=== PATIENT | male | born 1965 | race Caucasian/White ===

== ENCOUNTER → 2018-12-23 | Outpatient (CLI) | payer BC ==
--- NOTE | 2018-12-23 14:45 | XR ---
Left leg and left knee HISTORY: Pain 3 views of the left knee, 2 views of the left leg are submitted. Marginal spurring is present patellofemoral joint. Suspect vascular calcifications are present. There may be minimal joint effusion. Bone mineralization, joint spaces and alignment are maintained. No fr acture or dislocation. IMPRESSION: Suspect mild osteoarthritis. Knee MRI may be of benefit.
== END | disposition home or self-care (01) ==
LOC: RADXRMAIN 13:38
PROVIDERS: ATTEND Family Medicine
DX: M25.562 Pain in left knee (principal); M79.662 Pain in left lower leg
CPT/HCPCS: 36415; 85379

== ENCOUNTER → 2019-01-11 | Outpatient (CLI) | payer BC ==
--- NOTE | 2019-01-11 20:38 | MR ---
EXAMINATION TYPE: MR knee LT wo con DATE OF EXAM: 01/11/2019 COMPARISON: Left knee x-ray December 23, 2018. HISTORY: Lt knee pain x 3 yrs TECHNIQUE: Multiplanar, multisequence images of the knee is performed without IV contrast. FINDINGS: MEDIAL MENISCUS: Anterior and posterior horns are intact without tear. LATERAL MENISCUS: Anterior and posterior horns are intact without tear. CRUCIATE LIGAMENTS: The anterior and posterior cruciate ligaments are intact and unremarkable. COLLATERAL LIGAMENTS: The medial collateral ligament and lateral collateral ligament complex are inta ct and unremarkable. EXTENSOR MECHANISM: Visualized quadriceps and patellar tendons are intact. EFFUSION: No significant suprapatellar joint effusion. POPLITEAL CYST: Small septated popliteal/marquez cyst measuring 3.2 cm long axis sagittal image 24. TRICOMPARTMENT SPACES: Mild tricompartment joint space loss. No significant spurring. CARTILAGE: Compartment articular cartilage is maintained. BONE MARROW SIGNAL: No focal abnormal marrow signal is appreciated. OTHER: No additional significant abnormality is appreciated. IMPRESSION: No meniscal or ligamentous tear is seen. Small popliteal cyst. Mild tricompartment degene rative changes.
== END | disposition home or self-care (01) ==
LOC: RADMRIMAIN 18:30
PROVIDERS: ATTEND Family Medicine
DX: M17.12 Unilateral primary osteoarthritis, left knee (principal); M71.22 Synovial cyst of popliteal space [Baker], left knee

== ENCOUNTER 2019-07-31 02:14 | Emergency (ER) | payer BC ==
[2019-07-31 02:21] VITALS: TEMP 98.2
[2019-07-31] MEDS ORDERED: SODIUM CHLORIDE 0.9% 1,000 ML IV STA (02:34)
[2019-07-31] MEDS ORDERED: MECLIZINE 12.5 MG TAB PO STA (02:34)
[2019-07-31] MEDS ORDERED: LORazepam 2 MG/ML INJ IV STA (02:34)
--- NOTE | 2019-07-31 02:39 | ED ---
General Adult HPI - General Chief complaint: Dizziness Stated complaint: Dizziness Time Seen by Provider: 07/31/19 02:24 Source: patient, family, RN notes reviewed, old records reviewed Mode of arrival: ambulatory Limitations: no limitations - History of Present Illness Initial comments: 53-year-old male presenting for evaluation of lightheadedness, dizziness. Symptoms have been present throughout the day today. Patient denies focal numbness or weakness. Denies central chest pain. Denies cough fever or URI symptoms. He's had some nausea without vomiting. He has history of hypercholesterolemia and is a smoker. Otherwise he is healthy with no known coronary artery disease, no history of TIA or CVA. Patient had found out that his dog 11 years was ill and the dog one hour prior to arrival to the emergency department. Additionally the patient is on Lexapro although he has been weaning his dose over the past several days. Currently taking 5 mg of Lexapro. He states he's had similar symptoms although not as severe in the past when he had missed doses of Lexapro. - Related Data Allergies Allergy/AdvReac Type Severity Reaction Status Date / Time No Known Allergies Allergy Verified 07/31/19 02:20 Review of Systems ROS Statement: Those systems with pertinent positive or pertinent negative responses have been documented in the HPI. ROS Other: All systems not noted in ROS Statement are negative. Past Medical History Past Medical History: Hypertension History of Any Multi-Drug Resistant Organisms: None Reported Past Surgical History: Orthopedic Surgery Past Psychological History: Anxiety Smoking Status: Former smoker Past Alcohol Use History: None Reported Past Drug Use History: None Reported General Exam Limitations: no limitations General appearance: alert, in no apparent distress Head exam: Present: atraumatic, normocephalic Eye exam: Present: normal appearance, PERRL, EOMI. Absent: scleral icterus, nystagmus ENT exam: Present: normal exam Neck exam: Present: normal inspection. Absent: tenderness, meningismus Respiratory exam: Present: normal lung sounds bilaterally. Absent: respiratory distress, wheezes Cardiovascular Exam: Present: regular rate, normal rhythm GI/Abdominal exam: Present: soft. Absent: distended, tenderness, guarding, rebound Extremities exam: Present: normal inspection, normal capillary refill. Absent: pedal edema Neurological exam: Present: alert, oriented X3, CN II-XII intact, other (Bilateral [id number] normal, bilateral [id number] normal, no ataxia). Absent: motor sensory deficit Psychiatric exam: Present: agitated, anxious Skin exam: Present: warm, dry, intact. Absent: cyanosis, diaphoretic Course Vital Signs 07/31/19 02:15 Temperature 98.2 F Pulse Rate 60 Respiratory 20 Rate Blood Pressure 141/69 O2 Sat by Pulse 100 Oximetry EKG Findings - EKG Comments: EKG Findings:: EKG: Normal sinus rhythm, low voltage, rate of 60, TX interval 158, QRS duration 86, QTC 410, no ST segment elevation. Medical Decision Making - Medical Decision Making Patient with lightheadedness, dizziness, anxiety. Patient has a nonfocal neurologic exam, no ataxia. Head CT negative for acute intracranial abnormality. Normal CBC, normal CMP, negative troponin, nonischemic EKG normal sinus rhythm. Patient feeling better after medical treatment including Ativan, meclizine, IV fluids. He does believe this was related to anxiety from his dog passing away. He has been reassured and will follow-up with his primary care physician. - Lab Data Result diagrams: 07/31/19 02:33 07/31/19 02:33 Lab Results 07/31/19 07/31/19 07/31/19 Range/Units 02:33 02:33 02:33 WBC 11.0 H (3.8-10.6) k/uL RBC 5.03 (4.30-5.90) m/uL Hgb 15.1 (13.0-17.5) gm/dL Hct 46.8 (39.0-53.0) % MCV 93.1 (80.0-100.0) fL MCH 30.0 (25.0-35.0) pg MCHC 32.3 (31.0-37.0) g/dL RDW 12.6 (11.5-15.5) % Plt Count 193 (150-450) k/uL Neutrophils % 58 % Lymphocytes % 32 % Monocytes % 5 % Eosinophils % 2 % Basophils % 0 % Neutrophils # 6.3 (1.3-7.7) k/uL Lymphocytes # 3.6 (1.0-4.8) k/uL Monocytes # 0.5 (0-1.0) k/uL Eosinophils # 0.2 (0-0.7) k/uL Basophils # 0.0 (0-0.2) k/uL Sodium 138 (137-145) mmol/L Potassium 4.2 (3.5-5.1) mmol/L Chloride 104 (98-107) mmol/L Carbon Dioxide 23 (22-30) mmol/L Anion Gap 11 mmol/L BUN 11 (9-20) mg/dL Creatinine 0.64 L (0.66-1.25) mg/dL Est GFR (CKD-EPI)AfAm >90 (>60 ml/min/1.73 sqM) Est GFR (CKD-EPI)NonAf >90 (>60 ml/min/1.73 sqM) Glucose 128 H (74-99) mg/dL Calcium 9.7 (8.4-10.2) mg/dL Total Bilirubin 0.5 (0.2-1.3) mg/dL AST 28 (17-59) U/L ALT 22 (4-49) U/L Alkaline Phosphatase 112 (38-126) U/L Troponin I <0.012 (0.000-0.034) ng/mL Total Protein 7.8 (6.3-8.2) g/dL Albumin 4.6 (3.5-5.0) g/dL Disposition Clinical Impression: Anxiety, Grief reaction Disposition: HOME SELF-CARE Condition: Fair Instructions (If sedation given, give patient instructions): Dizziness (ED) Is patient prescribed a controlled substance at d/c from ED?: No Referrals: Genaro Aguilar DO [Primary Care Provider] - 1-2 days Time of Disposition: 03:26
[2019-07-31 02:41] LABS: Basophils % (A) 0 %; Eosinophils # (A) 0.2 k/uL (0-0.7); Eosinophils % (A) 2 %; HCT 46.8 % (39.0-53.0); HGB 15.1 gm/dL (13.0-17.5); Lymphocytes # (A) 3.6 k/uL (1.0-4.8); Lymphocytes % (A) 32 %; MCHC 32.3 g/dL (31.0-37.0); MCV 93.1 fL (80.0-100.0); Mean Platelet Volume 8.1; Monocytes # (A) 0.5 k/uL (0-1.0); Monocytes % (A) 5 %; Neutrophils # (A) 6.3 k/uL (1.3-7.7); Neutrophils % (A) 58 %; Platelet Count 193 k/uL (150-450); RBC 5.03 m/uL (4.30-5.90); RDW 12.6 % (11.5-15.5)
[2019-07-31 02:59] LABS: ALT 22 U/L (4-49); AST 28 U/L (17-59); African American GFR (CKD) >90 (>60 ml/min/1.73 sqM); Albumin 4.6 g/dL (3.5-5.0); Alkaline Phosphatase 112 U/L (38-126); Anion Gap 11 mmol/L; Blood Urea Nitrogen 11 mg/dL (9-20); Calcium 9.7 mg/dL (8.4-10.2); Carbon Dioxide 23 mmol/L (22-30); Chloride 104 mmol/L (98-107); Glucose 128 mg/dL (74-99); Non-African American GFR(CKD) >90 (>60 ml/min/1.73 sqM); Potassium 4.2 mmol/L (3.5-5.1); Sodium 138 mmol/L (137-145); Total Bilirubin 0.5 mg/dL (0.2-1.3); Total Protein 7.8 g/dL (6.3-8.2)
--- NOTE | 2019-07-31 03:00 | CT ---
EXAMINATION TYPE: CT brain wo con DATE OF EXAM: 07/31/2019 COMPARISON: 01/26/2014 HISTORY: Dizziness CT DLP: 1113.40 mGycm Automated exposure control for dose reduction was used. Ventricles have normal size. There is no mass effect nor midline shift. There is no sign of intracran ial hemorrhage. The calvarium is intact. There is mild mucosal thickening in the ethmoid and maxillar y sinuses. Skull base is intact. There is no evidence of cerebral edema. IMPRESSION: Negative CT scan of the brain. Mild sinusitis. Unchanged.
[2019-07-31 03:46] VITALS: BP 106/74; PULSE 63; RESP 18
== END 2019-07-31 03:43 | disposition home or self-care (01) ==
LOC: EC 02:14
DX: F43.22 Adjustment disorder with anxiety (principal); Z87.891 Personal history of nicotine dependence
CPT/HCPCS: 36415; 93005; 80053; 84484; 85025; 70450; 99285; 96374; 96361; J2060

== ENCOUNTER → 2020-10-17 | Outpatient (CLI) | payer BC ==
--- NOTE | 2020-10-17 17:28 | XR ---
EXAMINATION TYPE: XR chest 2V DATE OF EXAM: 10/17/2020 COMPARISON: Chest x-ray dated 03/20/2012 HISTORY: Tobacco use, pain right chest TECHNIQUE: Frontal and lateral views of the chest are obtained. FINDINGS: There is no focal air space opacity, pleural effusion, or pneumothorax seen. The cardiac silhouette size is within normal limits. The osseous structures are intact, there is a pectus defor mity. IMPRESSION: No acute cardiopulmonary process.
== END | disposition home or self-care (01) ==
LOC: RADXRMAIN 12:08
PROVIDERS: ATTEND Family Medicine
DX: R07.9 Chest pain, unspecified (principal); Z72.0 Tobacco use
CPT/HCPCS: 71046

== ENCOUNTER → 2020-10-27 | Outpatient (CLI) | payer BC ==
--- NOTE | 2020-10-27 10:21 | USB ---
Reason for exam: clinical finding. History: Family history of breast cancer in paternal grandmother. Indicated problem(s): pain in both breasts. Physical Findings: Nurse Summary: Patient complains of bilateral breast pain x 1 hour with bilateral sensitive nipples, states sensitivity gone since stopped using shower loofah. Pain was 6 weeks post vaccine. No palpable abnormalies noted during exam today. No pain noted today (nurse rafael). US Breast Limited BILAT Right limited breast ultrasound including focal area of concern, retroareolar and axilla demonstrates no cystic or solid lesion seen. Right side symptomatic, scanned 5-7 o'clock, posterior nipple and axilla. Left limited breast ultrasound including focal area of concern, retroareolar and axilla demonstrates no cystic or solid lesion seen. No subareolar tissue. No axillary CAD. Left side scanned for comparision. Patient declines mammogram. These results were verbally communicated with the patient and result sheet given to the patient on 10/27/20. ASSESSMENT: Negative, BI-RAD 1 RECOMMENDATION: Clinical management of both breasts. Patient declines mammogram. Manage on a clinical basis with regard to breast pain and nipple sensitivity. If any palpable area arrives, ultrasound and mammogram will be recommended.
== END | disposition home or self-care (01) ==
LOC: RADMAMWWP 07:35
PROVIDERS: ATTEND Family Medicine
DX: N64.4 Mastodynia (principal)

== ENCOUNTER → 2022-09-05 | Outpatient (CLI) | payer BC ==
--- NOTE | 2022-09-25 14:42 | P.CEMON ---
[14] DAY EVENT MONITOR REPORT: INDICATION: Cardiac arrhythmia. START DATE: 09/05/2022 END DATE: 09/12/2022 Patient wore the monitor for 6.7 days which is 83 % of total time. Maximum Heart Rate: 105 BPM Minimum Heart Rate: 50 BPM FINDINGS: Overall [good] quality study. Patient's baseline rhythm was [normal sinus rhythm]. Baseline heart rate was 66 beats per minute. There were no observed atrial fibrillation, atrial flutter, supraventricular tachycardia or sustained ventricular rhythm. There were no observed sinus pauses which were more than 2 second long. Patient triggered events with no specific symptoms. On single lead EKG, it corresponded to normal sinus rhythm. There were a few auto capture rhythm strips corresponding to sinus bradycardia normal sinus rhythm. Please correlate clinically. Jamie Falcon MD Cardiovascular Disease
--- NOTE | 2022-09-26 11:28 | EM ---
14 DAY EVENT MONITOR REPORT: INDICATION: Cardiac arrhythmia. START DATE: 09/05/2022 END DATE: 09/12/2022 Patient wore the monitor for 6.7 days which is 83 % of total time. Maximum Heart Rate: 105 BPM Minimum Heart Rate: 50 BPM FINDINGS: Overall good quality study. Patient's baseline rhythm was [normal sinus rhythm]. Baseline heart rate was 66 beats per minute. There were no observed atrial fibrillation, atrial flutter, supraventricular tachycardia or sustained ventricular rhythm. There were no observed sinus pauses which were more than 2 second long. Patient triggered events with no specific symptoms. On single lead EKG, it corresponded to normal sinus rhythm. There were a few auto capture rhythm strips corresponding to sinus bradycardia normal sinus rhythm. Please correlate clinically. MTDD
== END | disposition home or self-care (01) ==
LOC: RADECHMAIN 11:49
PROVIDERS: ATTEND Family Medicine
DX: I49.9 Cardiac arrhythmia, unspecified (principal)
CPT/HCPCS: 93270

== ENCOUNTER → 2022-09-09 | Outpatient (CLI) | payer BC ==
--- NOTE | 2022-09-09 10:39 | XR ---
EXAMINATION TYPE: XR chest 2V DATE OF EXAM: 09/09/2022 COMPARISON: 10/17/2020 HISTORY: Shortness of breath TECHNIQUE: Frontal and lateral views of the chest are obtained. FINDINGS: Scattered senescent parenchymal changes noted. Hyperinflation compatible with COPD. No evidence for infiltrate. No evidence for atelectasis. Heart size is stable. Mediastinal structures are stable and grossly unremarkable. No evidence for hilar prominence. Degenerative changes dorsal spine. IMPRESSION: 1. No evidence for acute pulmonary disease.
== END | disposition home or self-care (01) ==
LOC: RADXRMAIN 09:51
PROVIDERS: ATTEND Family Medicine
DX: R06.02 Shortness of breath (principal); F17.210 Nicotine dependence, cigarettes, uncomplicated
CPT/HCPCS: 71046